=== PATIENT | male | born 1985 | race Caucasian/White ===

== ENCOUNTER 2017-06-13 23:45 | Emergency (ER) | payer OTHER | END 2017-06-14 00:38 | disposition home or self-care (01) | LOC: D.ER 23:45 | DX: K08.89 Other specified disorders of teeth and supporting structures (principal); K05.10 Chronic gingivitis, plaque induced ==

== ENCOUNTER 2019-03-25 14:14 | Emergency (ER) | payer MEDICAID ==
[~2019-03-25] VITALS: Ht 180.3 cm; Wt 88.6 kg
[2019-03-25 14:17] VITALS: Ht 180.3 cm; Wt 88.6 kg
[2019-03-25] MEDS ORDERED: IBUPROFEN800 MG PO (14:55)
[2019-03-25 15:23] VITALS: BP 133/76
== END 2019-03-25 15:23 | disposition home or self-care (01) ==
LOC: D.ER 14:14
DX: S60.221A Contusion of right hand, initial encounter (principal); X58.XXXA Exposure to other specified factors, initial encounter; Y93.89 Activity, other specified; Y92.89 Other specified places as the place of occurrence of the external cause

== ENCOUNTER 2019-11-23 09:37 | Emergency (ER) | payer OTHER ==
[~2019-11-23] VITALS: Ht 180.3 cm; Wt 81.8 kg
[~2019-11-23 09:37] MED LIST: IBUPROFEN800 MG PO
[2019-11-23 09:42] VITALS: Ht 180.3 cm; Wt 81.8 kg
[2019-11-23] MEDS ORDERED: HYDROCODON-ACE1 EAC2 PO (10:09)
[2019-11-23] MEDS ORDERED: DOXYCYCLINE HY100 M2 PO (10:10)
[2019-11-23 10:36] LABS: SPECIFIC GRAVITY 1.025 (1.005-1.020)
[2019-11-23 10:37] LABS: BACTERIA FEW /hpf (NEGATIVE); BILIRUBIN NEGATIVE (NEGATIVE); EPITHELIAL CELLS 0-5 /hpf (0-5); GLUCOSE NEGATIVE (NEGATIVE); KETONE NEGATIVE (NEGATIVE); NITRITE NEGATIVE (NEGATIVE); RED CELLS - URINE OCC /hpf (0-5); WHITE CELLS - URINE OCC /hpf (NEGATIVE)
[2019-11-23 10:43] VITALS: BP 127/80
== END 2019-11-23 10:44 | disposition home or self-care (01) ==
LOC: D.ER 09:37
PROVIDERS: Emergency Medicine
DX: N45.1 Epididymitis (principal); N50.819 Testicular pain, unspecified

== ENCOUNTER 2019-12-21 20:40 | Emergency (ER) | payer OTHER ==
[2019-11-23 09:42] VITALS: BMI 25.1
[~2019-12-21 20:40] MED LIST changes: +DOXYCYCLINE HY100 M2 PO; +HYDROCODON-ACE1 EAC2 PO
== END 2019-12-21 21:10 | disposition left against medical advice (07) ==
LOC: D.ER 20:40
DX: N50.89 Other specified disorders of the male genital organs (principal)

== ENCOUNTER 2020-02-14 22:04 | Emergency (ER) | payer OTHER ==
[~2020-02-14] VITALS: Ht 180.3 cm; Wt 72.6 kg
[2020-02-14 22:32] VITALS: BP 137/79; Ht 180.3 cm; Wt 72.6 kg
== END 2020-02-15 00:03 | disposition left against medical advice (07) ==
LOC: D.ER 22:04
DX: S22.20XA Unspecified fracture of sternum, initial encounter for closed fracture (principal); R07.9 Chest pain, unspecified; V89.0XXA Person injured in unspecified motor-vehicle accident, nontraffic, initial encounter; Y93.9 Activity, unspecified; Y92.9 Unspecified place or not applicable

== ENCOUNTER 2020-02-19 00:25 | Observation (INO) | payer OTHER ==
[~2020-02-19] VITALS: Ht 180.3 cm; Wt 75.9 kg
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
[2020-02-19 04:18] VITALS: BP 136/61; Ht 180.3 cm; Wt 75.9 kg
[2020-02-19 08:58] VITALS: BP 107/56
[2020-02-19 10:27] LABS: BASOPHILS 0.2 % (0-2); EOSINOPHILS 8.4 % (0-7); HEMATOCRIT 40.4 % (42.0-54.0); HEMOGLOBIN 13.4 g/dL (13.5-17.5); IMMATURE GRANULOCYTES 0.2 % (0-5); LYMPHOCYTES 21.8 % (15-50); MCH 31.4 pg (26.0-34.0); MCHC 33.2 g/dL (31.0-37.0); MCV 94.6 fL (80.0-100.0); MEAN PLATELET VOLUME 8.7 fL (7.4-10.4); NEUTROPHILS 58.4 % (40-80); PLATELET COUNT 342 10x3/uL (130-400); RBC 4.27 10x6/uL (4.20-6.10); RDW 13.3 % (11.5-14.5); WBC 9.3 10x3/uL (4.8-10.8)
[2020-02-19 10:37] LABS: ALBUMIN 3.2 g/dL (3.4-5.0); ANION GAP 7.3 mmol/L (8-16); BILIRUBIN - TOTAL 0.29 mg/dL (0.2-1.3); CALCIUM 8.7 mg/dL (8.5-10.1); CARBON DIOXIDE 30.8 mmol/L (21.0-32.0); CREATININE - SERUM 1.2 mg/dL (0.6-1.3); POTASSIUM - SERUM 4.1 mmol/L (3.5-5.1); PROTEIN - SERUM 6.5 g/dL (6.4-8.2)
[2020-02-19 13:03] VITALS: BP 120/65
== END 2020-02-19 17:26 | disposition home or self-care (01) ==
LOC: D.ER 00:25 → D.MS 01:35 → OBSVTIME 01:35 → D.MS 17:26
PROVIDERS: ADMIT Emergency Medicine; ATTEND Emergency Medicine
DX: S22.20XA Unspecified fracture of sternum, initial encounter for closed fracture (principal); V89.2XXA Person injured in unspecified motor-vehicle accident, traffic, initial encounter; R06.00 Dyspnea, unspecified; F15.10 Other stimulant abuse, uncomplicated; F17.200 Nicotine dependence, unspecified, uncomplicated

== ENCOUNTER 2020-12-30 16:41 | Emergency (ER) | payer SELFPAY ==
[~2020-12-30] VITALS: Ht 180.3 cm; Wt 81.8 kg
[2020-12-30 16:48] VITALS: BP 108/75; Ht 180.3 cm; Wt 81.8 kg
[2020-12-30 17:44] LABS: BASOPHILS 0.4 % (0-2); EOSINOPHILS 0.3 % (0-7); HEMATOCRIT 38.6 % (42.0-54.0); HEMOGLOBIN 12.9 g/dL (13.5-17.5); LYMPHOCYTES 6.8 % (15-50); MCH 30.4 pg (26.0-34.0); MCHC 33.5 g/dL (31.0-37.0); MCV 90.7 fL (80.0-100.0); MEAN PLATELET VOLUME 7.1 fL (7.4-10.4); MONOCYTES 12.7 % (2-11); NEUTROPHILS 79.8 % (40-80); PLATELET COUNT 276 10x3/uL (130-400); RBC 4.25 10x6/uL (4.20-6.10); RDW 13.1 % (11.5-14.5); WBC 13.4 10x3/uL (4.8-10.8)
[2020-12-30 17:54] LABS: ANION GAP 12.8 mmol/L (8-16); CALCIUM 8.7 mg/dL (8.5-10.1); CARBON DIOXIDE 23.7 mmol/L (21.0-32.0); CREATININE - SERUM 1.2 mg/dL (0.6-1.3); POTASSIUM - SERUM 3.5 mmol/L (3.5-5.1)
[2020-12-30 18:01] LABS: ALBUMIN 3.3 g/dL (3.4-5.0); BILIRUBIN - TOTAL 0.23 mg/dL (0.2-1.3); PROTEIN - SERUM 6.8 g/dL (6.4-8.2)
[2020-12-30 19:39] LABS: BILIRUBIN NEGATIVE (NEGATIVE); KETONE NEGATIVE (NEGATIVE); NITRITE NEGATIVE (NEGATIVE); UROBILINOGEN NORMAL mg/dL (< 2)
[2020-12-30 19:44] LABS: SARS-CoV-2 ANTIGEN NEGATIVE- SARS-COV-2 (NEGATIVE)
== END 2020-12-31 12:20 | disposition home or self-care (01) ==
LOC: D.ER 16:41
PROVIDERS: Student in an Organized Health Care Education/Training Program
DX: J02.9 Acute pharyngitis, unspecified (principal); Z11.59 Encounter for screening for other viral diseases; I10 Essential (primary) hypertension